=== PATIENT | male | born 1960 | race Caucasian/White ===

== ENCOUNTER 2019-11-26 23:09 | Emergency (ER) | payer SELFPAY ==
[2019-11-26 23:10] VITALS: BP 97/50; PULSE 76; RESP 16; TEMP 36.6; O2SAT 95; BMI 27.1
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
[2019-11-26] MEDS: Morphine 4 MG/ML Syringe IM ×2 (23:22→23:49)
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
[2019-11-27 00:19] VITALS: PULSE 72; RESP 16
== END 2019-11-27 01:28 | disposition home or self-care (01) ==
LOC: ED 11-27 00:04
PROVIDERS: Emergency Provider Emergency Medicine
DX: S63.114A Dislocation of metacarpophalangeal joint of right thumb, initial encounter (principal); S61.011A Laceration without foreign body of right thumb without damage to nail, initial encounter; S80.01XA Contusion of right knee, initial encounter; V18.0XXA Pedal cycle driver injured in noncollision transport accident in nontraffic accident, initial encounter; Y93.55 Activity, bike riding; Y92.480 Sidewalk as the place of occurrence of the external cause; Y99.9 Unspecified external cause status; Z87.891 Personal history of nicotine dependence
CPT/HCPCS: 12001; 26700; 73130; 73564; 96372; 99285

== ENCOUNTER 2019-12-19 22:52 | Emergency (ER) | payer SELFPAY ==
[2019-12-19 22:53] VITALS: BP 153/103; PULSE 83; RESP 12; TEMP 36.7; O2SAT 98; BMI 24.3
[2019-12-19 23:00] VITALS: BP 153/103; PULSE 83; RESP 12; TEMP 36.7; O2SAT 98
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
[2019-12-19] MEDS: traMADol 50 MG Tablet PO (23:31)
[2019-12-19] MEDS: Cephalexin 250 MG Capsule 500 MG PO (23:31)
--- NOTE | 2019-12-20 00:13 | RAD_ITS ---
STUDY: X-RAY - RIGHT HAND, ATTENTION FIRST FINGER REASON FOR EXAM: Male, 59 years old. POST REDUCTION TECHNIQUE: 3 view(s) of the finger were obtained. COMPARISON: None. FINDINGS: Normal metacarpal head. Improvement in alignment at the metacarpophalangeal joint. Normal proximal phalanx. Normal middle phalanx. Normal distal phalanx. Normal proximal interphalangeal joint. Normal distal interphalangeal joint. RAD/Finger(s) Min 2 Views IMPRESSION: Improvement in alignment at the metacarpophalangeal joint. Electronically Signed: Annie Mccoy, at 1:01 EDT Tel , Service support ,
[2019-12-20 00:31] VITALS: BP 153/103; PULSE 83; RESP 12; TEMP 36.7; O2SAT 98
== END 2019-12-20 00:48 | disposition home or self-care (01) ==
PROVIDERS: Emergency Provider Emergency Medicine
DX: S63.114A Dislocation of metacarpophalangeal joint of right thumb, initial encounter (principal); S62.291A Other fracture of first metacarpal bone, right hand, initial encounter for closed fracture; V19.9XXA Pedal cyclist (driver) (passenger) injured in unspecified traffic accident, initial encounter; Y93.55 Activity, bike riding; Y92.9 Unspecified place or not applicable; Y99.9 Unspecified external cause status; F17.200 Nicotine dependence, unspecified, uncomplicated
CPT/HCPCS: 26700; 29125; 73140; 99282

== ENCOUNTER 2019-12-30 20:05 | Emergency (ER) | payer SELFPAY ==
[2019-12-30 20:06] VITALS: BP 135/80; PULSE 100; RESP 16; TEMP 36.7; O2SAT 95; BMI 23.7
[2019-12-30] MEDS: HYDROcodone Bitartrate/Apap 5/325 Tablet PO (20:37)
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
--- NOTE | 2019-12-30 21:16 | ED.VISSUMM ---
- ER Visit Summary Date of Service: 12/30/19 Chief Complaint: Right thumb dislocation History of Present Illness: The patient is a 59 M with no primary care physician. He is right-hand dominant and works for [[employer]. He reports that he originally injured his thumb November 25. And at that time had a dislocation that was reduced. He was seen again on December 18 and was found to have a very unstable right first MCP joint. It was dislocated again and was reduced. He was placed in a splint and instructed to follow-up with [facility] hand surgery. He is never followed up. Patient reports that he cannot wear the splint at work and he believes that he dislocated again approximately 2 days ago. He complains of a sharp pain is 10 of 10 severity. Is worsened by movement relieved by rest. Denies any paresthesias distally. Does report he is having a difficult time using that thumb. Physical Examination: Vitals: Stable. Afebrile. General: Well-nourished and well-developed. Head: Normocephalic atraumatic. Neck: Supple, no lymphadenopathy. No JVD. Nontender. Cardiovascular: Regular rate and rhythm. No murmurs. Respiratory: No respiratory distress. Clear to auscultation bilaterally. Abdominal: Soft, nontender, nondistended, normal bowel sounds. No guarding, rebound, or peritoneal signs. Back: Nontender. Extremities: Soft tissue swelling and severe tenderness palpation over the first MCP joint on the right. He is neurovascular intact distally. Skin: Normal color, no rash. Neurologic: Alert and oriented ?3. Cranial nerves II through XII are intact. Normal strength and sensation. Psych: Normal affect. Test Results: X-ray shows a subluxation of the right thumb MCP joint with a fracture fragment adjacent to this. Emergency Department Course and Treatment: Patient was treated with [place]. I had a prolonged discussion with him that the dislocation is unstable and will not stay in place. I have offered to reduce this and put him back in a splint and he is refused this. Treatment Plan: The patient was discussed with Dr. Keen, a hand surgeon at [facility], who would like him to follow-up in 3 days for another exam. Patient does understand that if he does not have this repaired that he will have a chronic dislocation of his right thumb and that it will not be functional. Return to the emergency department for any worsening symptoms. Disposition: To home in improved and stable condition. Impression: 1 1. Chronic dislocation right first MCP joint. 2. Right first metacarpal head fracture. This note was generated with [employer] dictation software. It may contain incorrect words, spelling, and punctuation that were not noted in review of the chart prior to signing ED Disposition - Plan for ED Patient: Instructions: ED Dislocation Finger Redu Prescriptions: Hydrocodone Bitart/Apap 5-325 [[place] 5MG-325MG] 1 tablet PO Q4H PRN PRN 2 Days #10 tablet PRN Reason: Pain Additional Instructions: Follow up with Dr. Sawyer ([facility]) in 3 days for another exam. His phone number is [phone].
== END 2019-12-30 22:07 | disposition home or self-care (01) ==
LOC: ED 20:37
PROVIDERS: Emergency Provider Emergency Medicine; PCP Family Medicine
DX: M24.444 Recurrent dislocation, right finger (principal); S62.291A Other fracture of first metacarpal bone, right hand, initial encounter for closed fracture; X58.XXXA Exposure to other specified factors, initial encounter; Y93.9 Activity, unspecified; Y92.9 Unspecified place or not applicable; Y99.9 Unspecified external cause status; J44.9 Chronic obstructive pulmonary disease, unspecified; Z72.0 Tobacco use
CPT/HCPCS: 73140; 99283

== ENCOUNTER 2021-04-02 21:19 | Emergency (ER) | payer MEDICAID, SELFPAY ==
[2021-04-02 21:20] VITALS: BP 159/100; PULSE 113; RESP 18; TEMP 36.6; O2SAT 99; BMI 23.7
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
[2021-04-02] MEDS: Naproxen 250 MG Tablet 500 MG PO (22:49)
== END 2021-04-02 22:54 | disposition home or self-care (01) ==
PROVIDERS: Emergency Provider Emergency Medicine; PCP Family Medicine
DX: S01.21XA Laceration without foreign body of nose, initial encounter (principal); Y04.2XXA Assault by strike against or bumped into by another person, initial encounter; Y93.9 Activity, unspecified; Y92.9 Unspecified place or not applicable; Y99.9 Unspecified external cause status; U07.1 COVID-19; F17.200 Nicotine dependence, unspecified, uncomplicated
CPT/HCPCS: 12011; 70160; 99283

== ENCOUNTER 2021-07-12 19:00 | Emergency (ER) | payer MEDICAID, SELFPAY ==
[2021-07-12 19:01] VITALS: BP 157/103; PULSE 103; RESP 16; TEMP 36.1; O2SAT 95; BMI 23.0
--- NOTE | 2021-07-12 19:31 | EDS_ITS ---
HPI History of Present Illness Chief Complaint: Substance Abuse Informant: patient and spouse/S.O. Narrative Narrative: Patient presents with request for detox. 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 It depends how much money he has. He is very nonspecific on all the amounts of all the chemicals that he uses. He states he will take Percocet both orally as well as snorted. He last used Percocet yesterday. He also takes Zanys meaning Xanax. He last use these yesterday also. He also drinks alcohol. The amount of that was also very but normally 3 tall beers a day. He states he will get a little bit shaky if he does not drink but he is never really gone through withdrawals. His significant other states he gets mean when he does not drink. It does not sound like he has been through detox in a long time. He wants to get his life straight. The challenges that he cannot give me any values of how much he normally uses. He also complained that he had a cough and was bringing up yellow sputum but he was seen in urgent care somewhere in the last week and given some antibiotics that he is now done with. It sounds like it was probably azithromycin. He has an inhaler but he states it is expensive so he does not use it a lot. He is not short of breath now. He is not having chest pain. PFSH PFSH Home Medications albuterol sulfate [ProAir HFA] 2 inh INHALATION Q4H PRN PRN 07/12/21 [History Last Taken Unknown] Allergy/AdvReac Type Severity Reaction Status Date / Time No Known Allergies Allergy Verified 07/12/21 19:03 Social History Smoking Status: Current every day smoker tobacco type: cigarettes ROS ROS ED Constitutional Constitutional ED: Denies chills or fever(s) Eyes Eyes: Denies blurry vision ENT ENT ED: Denies sore throat Cardiovascular Cardiovascular: Denies chest pain or palpitations Respiratory/Chest Respiratory/Chest: Reports cough and sputum; Denies dyspnea Gastrointestinal Gastrointestinal: Denies abdominal pain, nausea or vomiting Genitourinary Genitourinary ED: Denies dysuria Musculoskeletal Musculoskeletal: Denies myalgias Integumentary Denies rash Neurologic Neurologic: Denies headache(s) Psychiatric Psychiatric: Denies anxiety or depression Endocrine Endocrinology: Denies polydipsia or polyuria Allergic/Immunologic Allergic/Immunologic ED: Denies urticaria EXAM Physical Exam Const Vital Signs: 07/12/21 19:01 07/12/21 19:51 07/12/21 21:54 Temperature 96.9 F L Temperature Source Temporal Pulse Rate 103 H 110 H 86 Respiratory Rate 16 16 19 H Blood Pressure 157/103 H 169/89 H Blood Pressure Mean 121 115 Pulse Ox 95 96 Oxygen Delivery Method Room Air Room Air 07/12/21 22:44 Temperature Temperature Source Pulse Rate 85 Respiratory Rate 16 Blood Pressure 146/74 H Blood Pressure Mean 98 Pulse Ox 95 Oxygen Delivery Method Room Air Positive well nourished and well developed Constitutional Narrative: Patient is eating candy sitting in the bed looks very comfortable. General Appearance ED: well developed and NAD HEENT Reports moist mucous membranes Eyes General Eye ED: Negative for pale conjunctiva or scleral icterus Neck no JVD Chest Wall inspection of chest normal Resp normal respiratory effort Auscultation: wheezes; Negative for rales or rhonchi Cardio regular rate and regular rhythm GI normal to inspection, nondistended, normoactive bowel sounds and non-tender Palpation: soft Back/Spine no CVA tenderness Extremity normal to inspection General Extremety ED: Negative for tenderness Neuro oriented x3 Sensorium / Orientation: alert Psych mental status grossly normal Skin no rashes or lesions noted MDM MDM MDM Narrative Medical decision making narrative: Patient did have blood work done. CBC is normal. Electrolytes show no marked abnormalities. This was high at 234. This does hint of some early diabetes. This can be managed as an outpatient does not require admission. Liver function test show no marked abnormalities. Alcohol level is negative. Tox screen is positive but not for opioids or benzodiazepines. He has cannabis, ecstasy and amphetamines. Tylenol is negative. I discussed case with the hospitalist. The hospitalist did come down evaluate the patient. This patient uses mostly meth that does not require detox. He is not showing any signs of withdrawal. His heart rate is normal. He is awake alert and calm. He has no opioids benzos or alcohol in his system and is showing no signs of withdrawal and does not need to be admitted for this. We are contacting a facility about a place to stay as this patient is homeless. Lab Data Attestation: I reviewed the patient's lab results. Labs: Laboratory Results - last 24 hr 07/12/21 07/12/21 07/12/21 19:40 19:40 19:40 WBC 6.7 RBC 4.56 L Hgb 14.2 Hct 42.1 MCV 92.3 MCH 31.1 MCHC 33.7 RDW Std Deviation 41.8 RDW Coeff of Abioal 12.3 Plt Count 380 MPV 9.6 Immature Gran % (Auto) 0.400 Neut % (Auto) 63.7 Lymph % (Auto) 24.2 [place] % (Auto) 7.0 Eos % (Auto) 4.3 Baso % (Auto) 0.4 Absolute Neuts (auto) 4.3 Absolute Lymphs (auto) 1.62 Nucleated RBC % 0 PT 12.4 INR 1.0 Sodium 137 Potassium 3.5 Chloride 101 Carbon Dioxide 33.0 H Anion Gap 3 L BUN 13 Creatinine 1.08 Estim Creat Clear Calc 78.34 Est GFR (MDRD) Af Amer 89 Est GFR (MDRD) Non-Af 74 BUN/Creatinine Ratio 12.0 Glucose 234 H Calcium 9.2 Total Bilirubin 0.40 AST 14 L ALT 18 Alkaline Phosphatase 80 Total Protein 7.9 Albumin 3.5 Globulin 4.4 H Albumin/Globulin Ratio 0.8 L Urine Opiates Screen Urine Methadone Screen Acetaminophen Ur Barbiturates Screen Ur Phencyclidine Scrn Ur Amphetamines Screen MDMA (Ecstasy) Screen U Benzodiazepines Scrn Urine Cocaine Screen U Cannabinoids Screen Ur Drug Screen Comment Ethyl Alcohol 07/12/21 07/12/21 07/12/21 19:40 19:40 21:50 WBC RBC Hgb Hct MCV MCH MCHC RDW Std Deviation RDW Coeff of [place] Plt Count MPV Immature Gran % (Auto) Neut % (Auto) Lymph % (Auto) [place] % (Auto) Eos % (Auto) Baso % (Auto) Absolute Neuts (auto) Absolute Lymphs (auto) Nucleated RBC % PT INR Sodium Potassium Chloride Carbon Dioxide Anion Gap BUN Creatinine Estim Creat Clear Calc Est GFR (MDRD) Af Amer Est GFR (MDRD) Non-Af BUN/Creatinine Ratio Glucose Calcium Total Bilirubin AST ALT Alkaline Phosphatase Total Protein Albumin Globulin Albumin/Globulin Ratio Urine Opiates Screen NEGATIVE Urine Methadone Screen NEGATIVE Acetaminophen < 2.0 L Ur Barbiturates Screen NEGATIVE Ur Phencyclidine Scrn NEGATIVE Ur Amphetamines Screen POSITIVE H MDMA (Ecstasy) Screen POSITIVE H U Benzodiazepines Scrn NEGATIVE Urine Cocaine Screen NEGATIVE U Cannabinoids Screen POSITIVE H Ur Drug Screen Comment Ethyl Alcohol < 3.0 Radiography Diagnostic Testing: Clinical Impression(s) from Imaging Studies Chest X-Ray 07/12/21 20:00 Discharge Plan Triage Chief Complaint: Substance Abuse ED Provider: Victor Hugo Gautam Dx/Rx/DC Orders Clinical Impression: Drug abuse, Homelessness Instructions: ED Drug Abuse Prescriptions: No Action albuterol sulfate [ProAir HFA] 90 mcg/actuation HFA aerosol inhaler 2 inh INHALATION Q4H PRN PRN (Reason: sob) RF: 0 Primary Care Provider: Aleksandar Reyes Referrals: Aleksandar Reyes MD [Primary Care Provider] - As soon as possible Disposition Disposition: Home, Self Care
[2021-07-12 19:50] LABS: Absolute Lymphocyte Count 1.62 X10^3/uL (0.83-4.51); Absolute Neutrophil Count 4.3 X10^3/uL (2.0-7.7); Basophil# 0.03 X10^3/uL; Basophil% 0.4 % (0-1); Eosinophil# 0.29 X10^3/uL; Eosinophils% 4.3 % (0-5); Hematocrit 42.1 % (40-54); Hemoglobin 14.2 g/dL (13.0-16.5); Lymphocyte # 1.62 X10^3/ul (0.83-4.51); Lymphocyte % 24.2 % (19-41); Mean Corp Hgb Conc 33.7 g/dL (32-36); Mean Corpuscular Hgb 31.1 pg (27.0-32.0); Mean Corpuscular Volume 92.3 fL (80-94); Mean Platelet Vol. 9.6 fl (6.2-12.0); Monocyte# 0.47 X10^3/uL; NRBC Flagged by Analyzer 0 % (0-5); Neutrophil # 4.26 X10^3/uL (2.7-7.7); Neutrophil % 63.7 % (47-70); Platelet Count 380 K/mm3 (150-450); RBC Distribution Width CV 12.3 % (11.6-14.6); RBC Distribution Width SD 41.8 fl (35.1-43.9); Red Blood Count 4.56 M/mm3 (4.6-6.2); White Blood Count 6.7 K/mm3 (4.4-11.0)
[2021-07-12] MEDS: Ipratropium/Albuterol Sulfate 3 ML AMPUL.NEB INHALATION (19:50)
[2021-07-12 19:51] VITALS: PULSE 110; RESP 16
--- NOTE | 2021-07-12 20:00 | RAD_ITS ---
INDICATION: cough EXAMINATION/TECHNIQUE: X-RAY - XR Chest 1 View 7:55 PM. COMPARISON: Chest x-ray 03/17/2015. FINDINGS: LINES/DEVICES: None. LUNGS: No consolidation. No pneumothorax. MEDIASTINUM: Aorta atherosclerotic. CARDIAC SILHOUETTE: Not enlarged. BONES AND SOFT TISSUES: No acute abnormalities. Degenerative changes in the dorsal spine and mild scoliosis. IMPRESSION: No acute findings. Electronically Signed: Swetha Chinchilla MD at 21:08 EDT , RAD/Chest 1 View (Portable)
[2021-07-12 20:04] LABS: Alcohol, Blood (Medical)-Serum < 3.0 mg/dL; Prothrombin Time (Protime)PT. 12.4 SECONDS (11.7-14.9)
[2021-07-12 20:09] LABS: ALB/GLOB Ratio 0.8 RATIO (0.9-2.4); AST(SGOT) 14 U/L (15-37); Alanine Aminotransfer ALT/SGPT 18 U/L (16-61); Albumin, Serum 3.5 g/dL (3.2-5.0); Alkaline Phosphatase 80 U/L (45-117); Anion Gap 3 (5-15); BUN 13 mg/dL (7-18); Calcium,Total 9.2 mg/dL (8.5-10.1); Chloride 101 mmol/L (98-107); Creatinine, Serum 1.08 mg/dL (0.70-1.30); EST Glomerular Filtration Rate 74 mL/min (>60); Est Glom Filt Rate - Afr Amer 89 mL/min (>60); Estimated Creatinine Clearance 78.34 ml/min; Globulin 4.4 g/dL (2.2-4.2); Glucose 234 mg/dL (74-106); Potassium 3.5 mmol/L (3.5-5.1); Protein, Total 7.9 g/dL (6.4-8.2); Sodium Level 137 mmol/L (136-145)
[2021-07-12 20:31] LABS: Acetaminophen (Tylenol) Level < 2.0 ug/mL (10.0-30.0)
--- NOTE | 2021-07-12 21:10 | CM.ED ---
ALBERTO Note Referral Source: Case Find Referral Reason: RICHIE DOMINGUEZ met with patient. Patient gave this bid writer permission to speak to his visitor in the room, his Ila. Patient's said that she and patint are not together but she is a support and patient agreed and she could be called for any information. Patient said that he is in the ED for detox. Patient reports use of meth, alcohol, weed, all kinds of pills which include oxy, Percocet and Xanax. Patient reports use of meth everyday... all day. Patient said that he uses pills as often as possible. Patient said that his last drink of alcohol was yesterday. Patient said that he drinks 3 12 packs of beer a day or beer and liquor. Patient said that sometimes he can drink a pint today and 1/5tomorrow. Patient reports no previous detox of AOD treatment. Patient reports at discharge someone from [facility] will pick me up. ALBERTO explained that the addiction therapist will meet with patient in the morning to discuss the most appropriate treatment for patient after detox. ALBERTO reviewed the programs guidelines including no visitors, no phones and personal items locked up. ALBERTO asked if patient or Ila had questions and then said no. ALBERTO remains available if needs arise. ALBERTO called treatment navigator and got the confidential [facility] ALBERTO left confidential voice mail advising patient presented to the ED for detox and his name. ALBERTO advised patient is still in the ED at this time. Plan: Richie FELDMAN
[2021-07-12 21:54] VITALS: BP 169/89; PULSE 86; RESP 19; O2SAT 96
[2021-07-12 22:14] LABS: Amphetamine Urine VISTA POSITIVE (<1000 ng/mL); Barbiturate Urine VISTA NEGATIVE (< 200 ng/mL); Benzodiazepine Urine VISTA NEGATIVE (< 200 ng/mL); Cocaine Urine VISTA NEGATIVE (< 300 ng/mL); Ecstacy Urine VISTA POSITIVE (< 500 ng/mL); Methadone Urine VISTA NEGATIVE (< 300 ng/mL); PCP Urine VISTA NEGATIVE (< 25 ng/mL); THC Urine VISTA POSITIVE (< 50 ng/mL); Vista UDS pH Range 6
[2021-07-12 22:44] VITALS: BP 146/74; PULSE 85; RESP 16; O2SAT 95
[2021-07-13 02:22] VITALS: PULSE 86; RESP 16; O2SAT 98
== END 2021-07-13 02:23 | disposition home or self-care (01) ==
PROVIDERS: Emergency Provider Emergency Medicine; PCP Family Medicine; Visit Provider Emergency Medicine
DX: F15.10 Other stimulant abuse, uncomplicated (principal); F17.210 Nicotine dependence, cigarettes, uncomplicated; Z59.00 Homelessness unspecified; Z79.899 Other long term (current) drug therapy
CPT/HCPCS: 71045; 80053; 80307; 80329; 82077; 85025; 85610; 94640; 99282; G0480

== ENCOUNTER → 2024-09-11 | Outpatient (CLI) | payer MEDICAID, SELFPAY ==
[2024-09-11 10:31] LABS: Hemoglobin A1c 6.1 % (<=5.6)
[2024-09-11 11:01] LABS: ALB/GLOB Ratio 1.4 RATIO (0.9-2.4); AST(SGOT) 22 U/L (<=37); Alanine Aminotransfer ALT/SGPT 17 U/L (<=46); Albumin, Serum 4.1 g/dL (3.4-4.8); Alkaline Phosphatase 55 U/L (40-129); Anion Gap 9 (5-15); BUN 14 mg/dL (4-19); BUN/Creat Ratio 16.4 RATIO (10-20); Calcium,Total 9.2 mg/dL (7.6-11.0); Carbon Dioxide 26.8 mmol/L (21.0-32.0); Chloride 104 mmol/L (98-108); Cholesterol 219 mg/dL (<=200); Creatinine, Serum 0.86 mg/dL (0.70-1.20); EST Glomerular Filtration Rate 97 (>60); Globulin 2.8 g/dL (2.2-4.2); Glucose 114 mg/dL (70-99); High Density Lipoprotein 59 mg/dL; Low Density Lipoprotein Calc. 140 mg/dL; Potassium 4.1 mmol/L (3.3-5.1); Protein, Total 6.9 g/dL (5.9-8.4); Sodium Level 140 mmol/L (133-145); Total Bilirubin 0.27 mg/dL (0.00-1.30); Triglycerides 103 mg/dL; Very Low Density Lipoprotein 21 mg/dL (5-40); cholesterol:hdl ratio screen 3.72
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
== END | disposition home or self-care (01) ==
PROVIDERS: Referring Provider Nurse Practitioner Family; Visit Provider Nurse Practitioner Family
DX: E78.5 Hyperlipidemia, unspecified (principal); Z13.1 Encounter for screening for diabetes mellitus; Z12.5 Encounter for screening for malignant neoplasm of prostate
CPT/HCPCS: 84153; 36415; 80053; 80061; 83036; G0103